=== PATIENT | female | born 2000 | race Two or more races ===

== ENCOUNTER 2024-07-02 21:53 | Emergency (ER) | payer OTHER ==
[~2024-07-02] VITALS: Ht 160 cm; Wt 64.8 kg
[2024-07-03 00:14] LABS: Urine Bacteria FEW /hpf (None Seen); Urine Blood 3+ /uL (Negative); Urine Clarity Turbid (Clear); Urine Color Light-Brown (Yellow); Urine Mucus FEW (None Seen); Urine Protein, UAD 1+ (Negative); Urine Specific Gravity 1.025 (1.001-1.035); Urine Squamous Epithelial Cell FEW /hpf (<5); Urine Urobilinogen Normal (Negative); Urine WBC 5 /HPF (0-5); Urine pH 5.5 (5.0-9.0)
--- NOTE | 2024-07-03 00:17 | DVH ---
OB ULTRASOUND <14 WEEKS: HISTORY: vag bleed 10 wk preg TECHNIQUE: Multiple real-time grayscale sonographic images of the pelvis with duplex Doppler color f low, spectral and M-mode analysis. TRANSDUCERS: COMPARISON: None FINDINGS: The uterus measures 11.2 x 8 x 7.1 cm. There is an intrauterine gestational sac containing a p ole. cardiac activity was identified with heart rate of 176 bpm. IUP single fetus at 11 weeks 1 day average ultrasound age based on mean crown-rump length of 4.16 cm and gestational sac size of 5.29 cm Rhiannon-gestational space: There is a crescentic hypoechoic area adjacent to the gestational sac measur ing approximately 2.7 x 2 x 1.9 cm consistent with subchorionic hemorrhage. Right ovary measures 2.2 x 2.7 x 2.2 cm with normal Doppler color flow. Left ovary measures 2.4 x 1.2 x 2.2 cm with normal Doppler color flow. No evidence of pelvic mass or fluid collection. IMPRESSION: Single live intrauterine with estimated average ultrasound gestational age of 11 weeks 1 da y. cardiac activity was identified with heart rate of 176 bpm. Evidence of subchorionic hemorrhage measuring up to 2.7 cm.
[2024-07-03 00:33] LABS: Basophils # (auto) 0.1 10 ^3/uL (0-0.2); Basophils % (auto) 0.4 % (0.0-2.0); Eosinophils # (auto) 0 10 ^3/uL (0-0.8); Eosinophils % (auto) 0.1 % (0.0-7.0); Hematocrit 43.1 % (36.0-46.0); Hemoglobin 14.2 g/dL (12.2-16.2); Lymphocytes # (auto) 1.6 10 ^3/uL (0.4-5.4); Lymphocytes % (auto) 10.3 % (10.0-50.0); Mean Corpuscular Hemoglobin 29.5 pg (28.0-32.0); Mean Corpuscular Hgb Conc. 32.9 g/dL (32.0-36.0); Mean Corpuscular Volume 89.7 fL (80.0-100.0); Monocytes # (auto) 0.9 10 ^3/uL (0-1.3); Monocytes % (auto) 6.1 % (0.0-12.0); Neutrophils # (auto) 12.6 10 ^3/uL (1.6-8.6); Neutrophils % (auto) 83.1 % (37.0-80.0); Platelet Count (auto) 246 10^3/uL (140-450); Red Cell Distribution Width 13.8 % (11.8-14.3); White Blood Cell 15.2 10^3/uL (4.4-10.8)
[2024-07-03 00:43] LABS: Chloride 104 mmol/L (98-107); Potassium 4.1 mmol/L (3.5-5.1); Sodium 137 mmol/L (136-145)
[2024-07-03 00:44] LABS: Anion Gap 9 (5-15); Carbon Dioxide 24 mmol/L (20-31)
[2024-07-03 00:45] LABS: Calcium 9.8 mg/dL (8.7-10.4)
[2024-07-03 00:49] LABS: BUN/Creatinine Ratio 16.7 (10.0-20.0); Glucose 98 mg/dL (74-106)
[2024-07-03 00:53] LABS: Blood Urea Nitrogen 9 mg/dL (9-23)
[2024-07-03 00:54] LABS: INR 0.92 (0.9-1.15); Partial Thromboplastin Time 24.8 SEC (24.5-34.5); Prothrombin Time 9.8 sec (9.3-11.8)
--- NOTE | 2024-07-03 01:12 | ED.PDOC ---
History of Present Illness HPI Comments 23-year-old female with current approximate 10 week brought in by family complaining of vaginal bleeding that started a few hours ago. She states the bleeding is moderate, like her menstrual period, associated with pelvic cramping. She denies any fever, vomiting, diarrhea or dysuria. She has had nausea. Chief Complaint: Vaginal Bleed Time Seen by MD: 23:30 Reviewed Notes: Nurses Notes, Medications, Allergies Allergies: Coded Allergies: NO KNOWN ALLERGIES (Unverified , 07/03/24) Home Meds Active Scripts Acetaminophen (Tylenol Extra Strength) 500 Mg Tab, 1000 MG PO Q6HP PRN, #30 TAB prn pain Prov:SARAH HALL MD 07/03/24 Information Source: Patient Mode of Arrival: Ambulatory Severity: Moderate Timing: Hours Duration: Since onset Prehospital treatment: None Past Medical History PAST MEDICAL HISTORY: Denies Surgical History: Denies all surgeries FORKLIFT PICKER History: No Pertinent FORKLIFT PICKER History 1 Para 0 AB 0 LMP 04/2024 Family History Family History: Unknown Social History Smoker: Non-Smoker Alcohol: Denies ETOH Use Drugs: Denies Drug Use Lives In: Home All Other Systems: Reviewed and Negative (Comprehensive systems review obtained and negative except for what is stated in the HPI.) Physical Exam General Appearance: No Apparent Distress HEENT: Other (Moist mucous membranes. Pupils symmetric.) Neck: Full Range of Motion, Normal Inspection Respiratory: Lungs Clear, No Accessory Muscle Use, No Respiratory Distress, Normal Breath Sounds Cardiovascular: No Edema, No JVD, Regular Rate/Rhythm Breast Exam: Deferred Gastrointestinal: Non Tender, Soft Genitalia: Deferred Pelvic: Deferred Rectal: Deferred Extremities: Normal inspection, Normal range of motion, Non-tender, No pedal edema Neurologic: Alert (Oriented x4), Normal Affect, Normal Mood, Other (Ambulatory without difficulty. No gross focal deficit.) Cerebellar Function: NOT DONE Reflexes: NOT DONE Skin: Dry, Normal Color, Warm Lymphatic: NOT DONE Was a procedure done? Was a procedure done?: No Differential Dx Considerations may include: Miscarriage, threatened , ectopic , abruptio placentae, uterine rupture, subchorionic hemorrhage, coagulopathy, among others X-Ray, Labs, Meds, VS Vital Signs Date Time Temp Pulse Resp B/P (MAP) Pulse Ox O2 Delivery O2 Flow Rate FiO2 07/03/24 04:20 20 98 Room Air* 0 21 07/03/24 04:19 98.7 66 18 124/82 (96) 97 98.7 07/02/24 22:25 98.3 85 18 132/75 (94) 97 Lab Test 07/03/24 00:16 07/02/24 23:20 Range/Units White Blood Count 15.2 H 4.4-10.8 10^3/uL Red Blood Count 4.80 4.0-5.20 10^6/uL Hemoglobin 14.2 12.2-16.2 g/dL Hematocrit 43.1 36.0-46.0 % Mean Corpuscular Volume 89.7 80.0-100.0 fL Mean Corpuscular Hemoglobin 29.5 28.0-32.0 pg Mean Corpuscular Hemoglobin Concent 32.9 32.0-36.0 g/dL Red Cell Distribution Width 13.8 11.8-14.3 % Platelet Count 246 140-450 10^3/uL Mean Platelet Volume 8.8 6.9-10.8 fL Neutrophils (%) (Auto) 83.1 H 37.0-80.0 % Lymphocytes (%) (Auto) 10.3 10.0-50.0 % Monocytes (%) (Auto) 6.1 0.0-12.0 % Eosinophils (%) (Auto) 0.1 0.0-7.0 % Basophils (%) (Auto) 0.4 0.0-2.0 % Neutrophils # (Auto) 12.6 H 1.6-8.6 10 ^3/uL Lymphocytes # (Auto) 1.6 0.4-5.4 10 ^3/uL Monocytes # (Auto) 0.9 0-1.3 10 ^3/uL Eosinophils # (Auto) 0 0-0.8 10 ^3/uL Basophils # (Auto) 0.1 0-0.2 10 ^3/uL Nucleated Red Blood Cells 0.0 % Prothrombin Time 9.8 9.3-11.8 sec Prothrombin Time INR 0.92 0.9-1.15 Activated Partial Thromboplast Time 24.8 24.5-34.5 SEC Sodium Level 137 136-145 mmol/L Potassium Level 4.1 3.5-5.1 mmol/L Chloride Level 104 98-107 mmol/L Carbon Dioxide Level 24 20-31 mmol/L Anion Gap 9 5-15 Blood Urea Nitrogen 9 9-23 mg/dL Creatinine 0.54 L 0.550-1.02 mg/dL Glomerular Filtration Rate Calc 132 >90 mL/min BUN/Creatinine Ratio 16.7 10.0-20.0 Serum Glucose 98 74-106 mg/dL Calcium Level 9.8 8.7-10.4 mg/dL Beta HCG, Quantitative 596123.6 H 1.5-4.2 mIU/mL Urine Color Light-brown Yellow Urine Clarity Turbid H Clear Urine pH 5.5 5.0-9.0 Urine Specific [place] 1.025 1.001-1.035 Urine Protein 1+ H Negative Urine Ketones Negative Negative Urine Blood 3+ H Negative /uL Urine Nitrite Negative Negative Urine Bilirubin Negative Negative Urine Urobilinogen Normal Negative mg/dL Urine Leukocyte Esterase Negative Negative /uL Urine RBC 988 0 - 4 /hpf Urine Microscopic WBC 5 0-5 /HPF Urine Squamous Epithelial Cells Few <5 /hpf Urine Bacteria Few H None Seen /hpf Urine Mucus Few None Seen Urine Glucose Normal Normal mg/dL Current Medications Medications (Trade) Dose Ordered Sig/Karmen Route Start Time Stop Time Status Last Admin Acetaminophen (Tylenol Tablet Or Capsule) 1,000 mg ONCE ONCE PO 07/02/24 23:30 07/02/24 23:32 DC 07/03/24 04:31 [place] [id number] Ph: [phone] DIAGNOSTIC IMAGING Diagnostic Imaging Report : [id number] Signed PATIENT: ANTOINETTE LANGLEY ACCT: [id number] UNIT: [id number] : 2000 LOC: ER ROOM / BED: / AGE / SEX: 23 / F ADM STATUS: REG ER SERVICE 2330 ORDERING PHYSICIAN: SARHA HALL MD PROCEDURE(s): OB4US - OB ULTRASOUND COMP LESS 14WKS REASON: vag bleed 10 wk preg ORDER NUMBER(s): [id number], ACCESSION NUMBER(s): [id number] OB ULTRASOUND <14 WEEKS: HISTORY: vag bleed 10 wk preg TECHNIQUE: Multiple real-time grayscale sonographic images of the pelvis with duplex Doppler color flow, spectral and M-mode analysis. TRANSDUCERS: COMPARISON: None FINDINGS: The uterus measures 11.2 x 8 x 7.1 cm. There is an intrauterine gestational sac containing a pole. cardiac activity was identified with heart rate of 176 bpm. IUP single fetus at 11 weeks 1 day average ultrasound age based on mean crown- rump length of 4.16 cm and gestational sac size of 5.29 cm Rhiannon-gestational space: There is a crescentic hypoechoic area adjacent to the gestational sac measuring approximately 2.7 x 2 x 1.9 cm consistent with subchorionic hemorrhage. Right ovary measures 2.2 x 2.7 x 2.2 cm with normal Doppler color flow. Left ovary measures 2.4 x 1.2 x 2.2 cm with normal Doppler color flow. No evidence of pelvic mass or fluid collection. IMPRESSION: Single live intrauterine with estimated average ultrasound gestational age of 11 weeks 1 day. cardiac activity was identified with heart rate of 176 bpm. Evidence of subchorionic hemorrhage measuring up to 2.7 cm. ATED BY: MORGAN LOONEY MD DICTATED DATE/TIME: 07/03/24 001 SIGNED BY: MORGAN LOONEY MD SIGNED DATE/TIME: 07/03/2413 CC: X-Ray, Labs, Meds, VS Comment 23-year-old female with current approximate 11 week , presenting with pelvic cramping and vaginal bleeding Vitals unremarkable Exam unremarkable Ob ultrasound: IMPRESSION: Single live intrauterine with estimated average ultrasound gestational age of 11 weeks 1 day. cardiac activity was identified with heart rate of 176 bpm. Evidence of subchorionic hemorrhage measuring up to 2.7 cm. CBC remarkable for WBC 15.2, metabolic panel unremarkable, coag panel unremarkable, serum quantitative hCG 605008.6, UA shows blood, protein, consistent with contaminated specimen Patient treated with the following in the ED: Tylenol 1 g p.o. On re-evaluation, patient is resting comfortably with stable vitals. Patient appears stable for discharge currently with close outpatient follow-up with OBGYN. She will be referred to Dr. Dc. Rx Tylenol Time of 1ST Reevaluation: 00:00 Reevaluation 1ST: Unchanged Time of 2ND Reevaluation: 16:06 Reevaluation 2ND: Improved Patient Education/Counseling: Diagnosis, Treatment Family Education/Counseling: No Family Present Departure 1 Departure Time of Disposition: 04:06 Impression: Primary Impression: Vaginal bleeding during Additional Impression: Subchorionic hemorrhage Qualified Codes: O20.8 - Other hemorrhage in early Disposition: 01 HOME / SELF CARE / HOMELESS Condition: Stable Referrals: [facility] DO Additional Instructions: Your blood and urine tests were unremarkable. Your ultrasound showed a single live with normal heart rate. There is no emergent treatment that is necessary. I have prescribed pain medication for the cramping. Follow- up to establish care with an OBGYN in 1-2 days. You have been referred to Dr. Dc. e-Prescriptions Acetaminophen (Tylenol Extra Strength) 500 Mg Tab 1000 MG PO Q6HP PRN, #30 TAB prn pain Prov: SARAH HALL MD 07/03/24 Discharged With: Relative Critical Care Note Critical Care Time?: No Stability Stability form required: No Heart Score Heart Score: Heart Score Response (Comments) Value History N/A 0 EKG N/A 0 Age N/A 0 Risk Factors N/A 0 Troponin N/A 0 Total 0 I personally scribed for SARAH HALL MD ([email or web address]) on 07/03/24 at 01:12. Electronically submitted by Darin Irene [email or web address]). SARAH HALL MD Jul 03, 2024 01:12
[2024-07-03] MEDS ORDERED: ACET-1304 PO (04:09)
[2024-07-03 04:19] VITALS: BP 124/82; PULSE 66; TEMP 98.7
[2024-07-03 04:20] VITALS: RESP 20; O2SAT 98
[2024-07-03] MEDS: ACETAMINOPHEN 500 MG TAB or CAP PO ONE (04:31)
== END 2024-07-03 04:30 | disposition home or self-care (01) ==
LOC: ER 21:53
DX: O20.8 Other hemorrhage in early pregnancy (principal); R10.2 Pelvic and perineal pain; Z3A.11 11 weeks gestation of pregnancy
CPT/HCPCS: 36415; 76801; 80048; 81001; 84702; 85025; 85610; 85730